=== PATIENT | female | born 1985 | race Caucasian/White ===

== ENCOUNTER 2018-09-21 11:00 | Outpatient (CLI) | payer OTHER ==
[2018-09-21 19:00] LABS: BASOPHILS % (AUTO) 0.3 %; EOSINOPHILS # (AUTO) 0.1 10^3/uL (0.0-0.7); HGB - HEMOGLOBIN 14.8 g/dL (12.0-16.0); LYMPHOCYTES # (AUTO) 1.7 10^3/uL (1.5-3.5); LYMPHOCYTES % (AUTO) 23.3 %; MEAN CORPUSCULAR HEMOGLOBIN 32.2 pg (27.0-31.0); MEAN CORPUSCULAR HGB CONC 33.2 g/dL (32.0-36.0); MEAN CORPUSCULAR VOLUME 96.9 fL (81.0-99.0); MEAN PLATELET VOLUME 9.4 fL (7.9-10.8); MONOCYTES # (AUTO) 0.4 10^3/uL (0.0-1.0); MONOCYTES % (AUTO) 5.7 %; NEUTROPHILS # (AUTO) 5.1 10^3/uL (1.5-6.6); NEUTROPHILS % (AUTO) 69.7 %; PLT - PLATELET COUNT 268 10^3/uL (130-450); RED BLOOD COUNT 4.59 10^6/uL (4.20-5.40); RED CELL DISTRIBUTION WIDTH 12.6 % (12.0-15.0); WHITE BLOOD COUNT 7.3 x10^3/uL (4.8-10.8)
[2018-09-21 19:21] LABS: ALBUMIN 4.4 g/dL (3.2-5.5); ALBUMIN/GLOBULIN RATIO 1.2 (1.0-2.2); ALKALINE PHOSPHATASE 53 IU/L (42-121); ALT ALANINE AMINOTRANSFERASE 12 IU/L (10-60); AST ASPARTATE AMINOTRANSFERASE 19 IU/L (10-42); BILIRUBIN,TOTAL 0.8 mg/dL (0.2-1.0); BUN - BLOOD UREA NITROGEN 12 mg/dL (6-20); CALCIUM 9.3 mg/dL (8.5-10.3); CARBON DIOXIDE - CO2 25 mmol/L (21-32); CHLORIDE 102 mmol/L (101-111); CHOL/HDL RATIO 2.8 (<4.4); CHOLESTEROL 214 mg/dL; CREATININE 0.7 mg/dL (0.4-1.0); GFR - MDRD 95 (>89); GLUCOSE 96 mg/dL (70-100); HDL CHOLESTEROL 76 mg/dL; LDL CHOLESTEROL,CALCULATED 120 mg/dL; LDL/HDL RATIO 1.6 (<4.4); SODIUM 137 mmol/L (135-145); TOTAL PROTEIN 8.1 g/dL (6.7-8.2); VLDL CHOLESTEROL 18 mg/dL
[2018-09-21 19:37] LABS: HB2 TOTAL 15.4 g/dL; HEMOGLOBIN A1C 0.54 g/dL; HEMOGLOBIN A1C % 5.4 % (4.6-6.2)
== END 2018-09-21 11:01 | disposition home or self-care (01) ==
LOC: LAB.WCP 11:00
PROVIDERS: ATTEND Family Medicine
DX: Z00.00 Encounter for general adult medical examination without abnormal findings (principal)
CPT/HCPCS: 36415; 80053; 80061; 83036; 83721; 84443; 85025

== ENCOUNTER 2020-10-24 10:50 | Outpatient (CLI) | payer OTHER ==
--- NOTE | 2020-10-24 13:01 | XRAY Report ---
PROCEDURE: Sinus Complete INDICATIONS: CHRONIC SINUSITIS TECHNIQUE: 3 views of the sinuses were acquired. COMPARISON: None FINDINGS: Sinuses: The visualized sinuses demonstrate no air-fluid levels or mucosal thickening. The visualiz ed mastoids also appear clear. Bones: No suspicious bony lesions. Nasal septum is midline. IMPRESSION: No sign of air-fluid level or mucosal thickening involving the paranasal sinuses. Reviewed by: Renato Velazco MD on 10/24/2020 12:59 PM PDT Approved by: Renato Velazco MD on 10/24/2020 12:59 PM PDT Station ID: [id number]
== END 2020-10-24 10:51 | disposition home or self-care (01) ==
LOC: DI.N 10:50
PROVIDERS: ATTEND Family Medicine
DX: J32.9 Chronic sinusitis, unspecified (principal)

== ENCOUNTER 2020-11-05 11:07 | Emergency (ER) | payer BC, OTHER ==
[2020-11-05 11:20] VITALS: BP 126/83
[2020-11-05] MEDS ORDERED: METOCLOPRAMIDE 10 MG/2 ML VIAL IVP STA (11:40)
--- NOTE | 2020-11-05 11:41 | ED Physician Documentation ---
History of Present Illness - Stated complaint Stated Complaint: N/V/D - Chief complaint Chief Complaint: Abd Pain - History obtained from History obtained from: Patient - Additonal information Additional information: 35-year-old woman with longstanding headaches of unclear etiology. She is had them for years. About 5 years ago had an MRI per her that was normal. Over the last couple weeks has had more headaches, her physician thought they might be sinus in origin and has been taking Flonase and Afrin without relief. She does not feel congested per se. No fevers. Over the last couple of weeks to she has had vomiting and diarrhea. She has vomited every day especially in the mornings. She does not think there is a possibility of as she had a normal menses recently. There is no blood from either end. No significant abdominal pain. Review of Systems Ten Systems: 10 systems reviewed and negative Constitutional: reports: Fatigue. denies: Fever, Chills, Myalgias Nose: denies: Rhinorrhea / runny nose, Congestion Cardiac: denies: Chest pain / pressure, Palpitations Respiratory: denies: Dyspnea, Cough PD PAST MEDICAL HISTORY - Past Medical History Past Medical History: No : None - Past Surgical History Past Surgical History: No - Present Medications Home Medications: Ambulatory Orders Medication Instructions Recorded Confirmed Loperamide [Imodium] 2 mg PO QID PRN #10 cap 11/05/20 Ondansetron Odt [Zofran] 4 mg TL Q6H PRN #10 tablet 11/05/20 - Allergies Allergies/Adverse Reactions: Allergies Allergy/AdvReac Type Severity Reaction Status Date / Time No Known Drug Allergies Allergy Verified 11/05/20 11:16 - Social History Does the pt smoke?: No Smoking Status: Never smoker Does the pt drink ETOH?: No Does the pt have substance abuse?: No - Immunizations Immunizations are current?: Yes - POLST Patient has POLST: No PD ED PE NORMAL - Vitals Vital signs reviewed: Yes - General General: Alert and oriented X 3, No acute distress - HEENT HEENT: PERRL, EOMI - Neck Neck: Supple, no meningeal sign, No bony TTP - Cardiac Cardiac: RRR, No murmur - Respiratory Respiratory: No respiratory distress, Clear bilaterally - Abdomen Abdomen: Normal bowel sounds, Soft, Non tender - Back Back: No CVA TTP, No spinal TTP - Derm Derm: Normal color, Warm and dry - Extremities Extremities: No edema, No calf tenderness / cord - Neuro Neuro: Alert and oriented X 3, orchard sprayer 2-12 intact, No motor deficit, No sensory deficit, Normal speech Results - Vitals Vitals: Vital Signs - 24 hr 11/05/20 11:16 Temperature 36.6 C Heart Rate 100 Respiratory 16 Rate Blood Pressure 126/83 H O2 Saturation 97 Oxygen O2 Source Room air - Labs Labs: Laboratory Tests 11/05/20 11/05/20 11/05/20 11:45 11:45 11:45 WBC 7.1 RBC 4.52 Hgb 15.0 Hct 43.0 MCV 95.1 MCH 33.2 H MCHC 34.9 RDW 11.5 L Plt Count 308 MPV 10.4 Neut # (Auto) 5.4 Lymph # (Auto) 1.2 L [place] # (Auto) 0.4 Eos # (Auto) 0.0 Baso # (Auto) 0.0 Absolute Nucleated RBC 0.00 Nucleated RBC % 0.0 Sodium 138 Potassium 3.7 Chloride 102 Carbon Dioxide 26 Anion Gap 10.0 BUN 10 Creatinine 0.7 Estimated GFR (MDRD) 94 Glucose 124 H Calcium 9.3 Total Bilirubin 0.8 AST 16 ALT 12 Alkaline Phosphatase 57 Total Protein 8.2 Albumin 4.8 Globulin 3.4 Albumin/Globulin Ratio 1.4 Lipase 29 Urine Color YELLOW Urine Clarity CLEAR Urine pH 6.0 Ur Specific [place] 1.010 Urine Protein NEGATIVE Urine Glucose (UA) NEGATIVE Urine Ketones NEGATIVE Urine Occult Blood TRACE-INTA Urine Nitrite NEGATIVE Urine Bilirubin NEGATIVE Urine Urobilinogen 0.2 (NORMAL) Ur Leukocyte Esterase NEGATIVE Ur Microscopic Review NOT INDICATED Urine Culture Comments NOT INDICATED Urine HCG, Qual NEGATIVE PD MEDICAL DECISION MAKING - ED course ED course: 35-year-old woman with worsening of chronic headaches associated with vomiting. Exam is benign. No abdominal pain. She does have diarrhea with it as well but the time course seems too long for simple gastroenteritis. 35-year-old woman with subacute to chronic headaches presents with worsening recent headaches and vomiting. She also has diarrhea. After the administration of Reglan her nausea was significantly better but she did have mild akathisia which she declined further treatment for. The Reglan did did not change her headache per se. Given the concern for tumor given the ongoing chronic headaches and vomiting a CT scan of the head was done and interpreted contemporaneously by me and was normal. The presentation otherwise is not concerning for subarachnoid hemorrhage or meningitis. Diagnosis: 1. Vomiting 2. Headache 3. Diarrhea Departure - Departure Disposition: 01 Home, Self Care Condition: Good Record reviewed to determine appropriate education?: Yes Instructions: ED Nausea Vomiting Prescriptions: Loperamide [Imodium] 2 mg PO QID PRN #10 cap PRN Reason: Diarrhea Ondansetron Odt [Zofran] 4 mg TL Q6H PRN #10 tablet PRN Reason: Nausea / Vomiting Comments: CT scan and labs are normal today. Follow-up with your primary care physician, next available appointment. Return for new or worsening symptoms.
[2020-11-05 12:02] LABS: BASOPHILS % (AUTO) 0.4 %; LYMPHOCYTES # (AUTO) 1.2 10^3/uL (1.5-3.5); LYMPHOCYTES % (AUTO) 17.3 %; MEAN CORPUSCULAR HEMOGLOBIN 33.2 pg (27.0-31.0); MEAN CORPUSCULAR HGB CONC 34.9 g/dL (32.0-36.0); MEAN CORPUSCULAR VOLUME 95.1 fL (81.0-99.0); MEAN PLATELET VOLUME 10.4 fL (7.9-10.8); MONOCYTES # (AUTO) 0.4 10^3/uL (0.0-1.0); NEUTROPHILS # (AUTO) 5.4 10^3/uL (1.5-6.6); NEUTROPHILS % (AUTO) 76.9 %; PLT - PLATELET COUNT 308 10^3/uL (130-450); RED BLOOD COUNT 4.52 10^6/uL (4.20-5.40); RED CELL DISTRIBUTION WIDTH 11.5 % (12.0-15.0); WHITE BLOOD COUNT 7.1 x10^3/uL (4.8-10.8)
[2020-11-05 12:08] LABS: BILIRUBIN,URINE NEGATIVE (NEGATIVE); GLUCOSE, URINE (UA) NEGATIVE (NEGATIVE); KETONES,URINE (UA) NEGATIVE (NEGATIVE); LEUKOCYTE ESTERASE, URINE NEGATIVE (NEGATIVE); NITRITE,URINE NEGATIVE (NEGATIVE); OCCULT BLOOD,URINE TRACE-INTA (NEGATIVE); PROTEIN,URINE NEGATIVE (NEGATIVE); UROBILINOGEN,URINE 0.2 (NORMAL) E.U./dL (NORMAL)
[2020-11-05 12:10] LABS: ALBUMIN 4.8 g/dL (3.2-5.5); ALBUMIN/GLOBULIN RATIO 1.4 (1.0-2.2); BILIRUBIN,TOTAL 0.8 mg/dL (0.2-1.0); CALCIUM 9.3 mg/dL (8.5-10.3); CREATININE 0.7 mg/dL (0.4-1.0); POTASSIUM 3.7 mmol/L (3.5-5.0); TOTAL PROTEIN 8.2 g/dL (6.7-8.2)
[2020-11-05 12:13] LABS: CLARITY,URINE CLEAR (CLEAR); HCG UR QUAL NEGATIVE
--- NOTE | 2020-11-05 12:14 | CT Report ---
PROCEDURE: HEAD WO INDICATIONS: headache, vomiting TECHNIQUE: Noncontrast 4.5 mm thick angled axial sections acquired from the foramen magnum to the vertex. For r adiation dose reduction, the following was used: automated exposure control, adjustment of mA and/or kV according to patient size. COMPARISON: None. FINDINGS: Image quality: Excellent. CSF spaces: Basal cisterns are patent. No extra-axial fluid collections. Ventricles are normal in size and shape. Brain: No midline shift. No intracranial masses or hemorrhage. Paez-white matter interface is norm al. Skull and face: Calvarium and visualized facial bones are intact, without suspicious lesions. Sinuses: Visualized sinuses and mastoids are clear. IMPRESSION: 1. No acute intracranial process. Reviewed by: Tamy Obrien MD on 11/05/2020 12:13 PM PDT Approved by: Tamy Obrien MD on 11/05/2020 12:13 PM PDT Station ID: [id number]
== END 2020-11-05 12:43 | disposition home or self-care (01) ==
LOC: ED 11:07
DX: R11.10 Vomiting, unspecified (principal); R19.7 Diarrhea, unspecified; R51.9 Headache, unspecified
CPT/HCPCS: 36415; 70450; 80053; 81003; 81025; 83690; 85025; 96374; 99284; J2765; 81001; 87086

== ENCOUNTER 2020-11-13 08:00 | Outpatient (CLI) | payer BC | END 2020-11-13 08:01 | disposition home or self-care (01) | LOC: LAB.N 08:00 | PROVIDERS: ATTEND Family Medicine | DX: R10.9 Unspecified abdominal pain (principal); R10.13 Epigastric pain | CPT/HCPCS: 87086; 87338 ==

== ENCOUNTER 2020-11-13 10:21 | Outpatient (CLI) | payer BC ==
[2020-11-13 11:20] LABS: H. PYLORIS ANTIGEN STL NEGATIVE (Negative)
== END 2020-11-13 10:22 | disposition home or self-care (01) ==
LOC: LAB.R 10:21
PROVIDERS: ATTEND Family Medicine
DX: R10.13 Epigastric pain (principal)
CPT/HCPCS: 87338

== ENCOUNTER 2020-12-06 08:57 | Outpatient (CLI) | payer BC ==
[2020-12-06 12:20] LABS: BASOPHILS % (AUTO) 0.6 %; EOSINOPHILS % (AUTO) 0.4 %; HCT - HEMATOCRIT 44.6 % (37.0-47.0); HGB - HEMOGLOBIN 15.3 g/dL (12.0-16.0); LYMPHOCYTES # (AUTO) 1.4 10^3/uL (1.5-3.5); LYMPHOCYTES % (AUTO) 30.9 %; MEAN CORPUSCULAR HEMOGLOBIN 33.2 pg (27.0-31.0); MEAN CORPUSCULAR HGB CONC 34.3 g/dL (32.0-36.0); MEAN CORPUSCULAR VOLUME 96.7 fL (81.0-99.0); MEAN PLATELET VOLUME 10.8 fL (7.9-10.8); MONOCYTES # (AUTO) 0.5 10^3/uL (0.0-1.0); MONOCYTES % (AUTO) 9.7 %; NEUTROPHILS # (AUTO) 2.7 10^3/uL (1.5-6.6); NEUTROPHILS % (AUTO) 58.2 %; PLT - PLATELET COUNT 301 10^3/uL (130-450); RED BLOOD COUNT 4.61 10^6/uL (4.20-5.40); RED CELL DISTRIBUTION WIDTH 11.7 % (12.0-15.0); WHITE BLOOD COUNT 4.7 x10^3/uL (4.8-10.8)
[2020-12-06 13:33] LABS: ALBUMIN 4.7 g/dL (3.2-5.5); ALBUMIN/GLOBULIN RATIO 1.5 (1.0-2.2); BILIRUBIN,TOTAL 0.9 mg/dL (0.2-1.0); CALCIUM 9.9 mg/dL (8.5-10.3); CREATININE 0.8 mg/dL (0.4-1.0); POTASSIUM 4.2 mmol/L (3.5-5.0); TOTAL PROTEIN 7.9 g/dL (6.7-8.2)
== END 2020-12-06 23:59 | disposition home or self-care (01) ==
LOC: LAB.WCP 08:57
PROVIDERS: ATTEND Family Medicine
DX: R10.9 Unspecified abdominal pain (principal); R10.13 Epigastric pain; R11.0 Nausea
CPT/HCPCS: 36415; 80053; 82150; 83690; 85025

== ENCOUNTER 2020-12-22 08:05 | Outpatient (CLI) | payer BC ==
--- NOTE | 2020-12-22 10:36 | Ultrasound Report ---
PROCEDURE: Abdomen Complete INDICATIONS: ABD CRAMPS, EPIGASTRIC DISCOMFORT TECHNIQUE: Real-time scanning was performed of the abdominal and retroperitoneal organs, with image documentatio n. COMPARISON: None. FINDINGS: Liver: Increased hepatic parenchymal echogenicity indicative of at least mild hepatic steatosis. Gallbladder: There are a few small gallstones. No findings of cholecystitis. Normally distended gallb ladder. Biliary ducts: Intrahepatic bile ducts are non-dilated. Extrahepatic bile duct caliber measures 3 m m. Normal is 6-7 mm or less in diameter, or 10 mm or less post-cholecystectomy. Pancreas: Visualized portions of the pancreas are sonographically normal. Spleen: Spleen is normal in size and homogeneous in echotexture. Kidneys: Normal size and appearance of both kidneys. No shadowing calculus or hydronephrosis. Aorta: Visualized aorta is normal in caliber at less than 3 cm. Iliacs: Proximal common iliac arteries are normal in caliber at less than 2.5 cm. IVC: Intrahepatic inferior vena cava is patent. Miscellaneous: No free abdominal fluid. IMPRESSION: Hepatic steatosis. Cholelithiasis without findings of cholecystitis. Reviewed by: Leonardo Epps MD on 12/22/2020 10:34 AM PDT Approved by: Leonardo Epps MD on 12/22/2020 10:34 AM PDT Station ID: [id number]
== END 2020-12-22 08:06 | disposition home or self-care (01) ==
LOC: DI 08:05
PROVIDERS: ATTEND Family Medicine
DX: R10.9 Unspecified abdominal pain (principal); R10.13 Epigastric pain; R11.0 Nausea; J32.9 Chronic sinusitis, unspecified; K76.0 Fatty (change of) liver, not elsewhere classified; K80.20 Calculus of gallbladder without cholecystitis without obstruction

== ENCOUNTER 2020-12-31 13:33 | Outpatient (CLI) | payer BC | END 2020-12-31 13:34 | disposition home or self-care (01) | LOC: COV 13:33 | PROVIDERS: ATTEND Surgery | DX: Z01.812 Encounter for preprocedural laboratory examination (principal); K81.1 Chronic cholecystitis; Z20.822 Contact with and (suspected) exposure to COVID-19 ==

== ENCOUNTER 2021-01-02 06:04 | Day surgery (SDC) | payer BC ==
[2021-01-02] MEDS ORDERED: CEFAZOLIN SODIUM IN 0.9 % NACL 2 GM/100 ML BAG IV ONE (06:29)
[2021-01-02 06:48] LABS: HCG UR QUAL NEGATIVE
[2021-01-02] MEDS ORDERED: LACTATED RINGERS 1,000 ML IV ONE ×3 (06:58→09:39)
[2021-01-02] MEDS ORDERED: BUPIVACAINE 0.25% PF 30 ML VIAL ONE (07:07)
[2021-01-02] MEDS ORDERED: MIDAZOLAM 2 MG/2 ML VIAL ONE (07:09)
[2021-01-02] MEDS ORDERED: fentaNYL 100 MCG/2 ML VIAL ONE (07:09)
--- NOTE | 2021-01-02 07:10 | ANESTHESIA ---
Pre-Anesthesia VS, & Labs - Diagnosis cholecystitis - Procedure laparoscopic cholecystectomy Height: 5 ft 5 in Weight (kg): 61.1 kg Body Mass Index: 22.4 BMI Classification: Healthy weight - NPO >8 hours - Is Patient ?: No Home Medications and Allergies Home Medications: Ambulatory Orders Omeprazole Magnesium 20 mg PO DAILY 12/28/20 Sucralfate [Carafate] 1 tablet PO ACHS 12/28/20 Omeprazole Magnesium 20 mg PO DAILY 12/28/20 Sucralfate [Carafate] 1 tablet PO ACHS 12/28/20 Allergies/Adverse Reactions: Allergies Allergy/AdvReac Type Severity Reaction Status Date / Time No Known Drug Allergies Allergy Verified 11/05/20 11:16 Anes History & Medical History - Anesthetic History Anesthesia Complications: reports: No previous complications - Medical History Cardiovascular: reports: None Pulmonary: reports: Asthma Gastrointestinal: reports: None Urinary: reports: None Musculoskeletal: reports: None Endocrine/Autoimmune: reports: None Skin: reports: None Smoking Status: Never smoker History of Cancer?: No Exam General: Alert Dental: WNL Mallampati classification: II Respiratory: Lungs clear Cardiovascular: Regular rate Plan Anesthesia Type: General Consent for Procedure(s) Verified and Reviewed: Yes Code Status: Attempt Resuscitation ASA classification: 1-Healthy patient Is this case an emergency?: No
[2021-01-02] MEDS ORDERED: LIDOCAINE-MPF 2% 5 ML VIAL ONE (07:12)
[2021-01-02] MEDS ORDERED: PROPOFOL 200 MG/20 ML VIAL IVP ONE (07:12)
[2021-01-02] MEDS ORDERED: ROCURONIUM 50 MG/5 ML VIAL ONE (07:13)
[2021-01-02] MEDS ORDERED: MORPHINE 2 MG/ML CARPUJECT IVP PRN (07:23)
[2021-01-02] MEDS ORDERED: ePHEDrine 50 MG/ML VIAL IVP PRN (07:23)
[2021-01-02] MEDS ORDERED: METOCLOPRAMIDE 10 MG/2 ML VIAL IVP PRN (07:23)
[2021-01-02] MEDS ORDERED: fentaNYL 100 MCG/2 ML VIAL IVP PRN (07:23)
[2021-01-02] MEDS ORDERED: ATROPINE ABBOJECT 1 MG/10 ML SYRINGE IVP PRN (07:23)
[2021-01-02] MEDS ORDERED: HYDROmorphone 0.5 MG/0.5 ML SYRINGE IVP PRN (07:23)
[2021-01-02] MEDS ORDERED: NALOXONE 0.4 MG/ML VIAL IVP PRN (07:23)
[2021-01-02] MEDS ORDERED: ONDANSETRON 4 MG/2 ML VIAL IVP PRN ×2 (07:23→08:51)
[2021-01-02] MEDS ORDERED: SCOPOLAMINE PATCH TOP ONE (07:30)
[2021-01-02] MEDS ORDERED: ACETAMINOPHEN 1,000 MG/100 ML 100 ML IV ONE (07:48)
[2021-01-02] MEDS ORDERED: LACTATED RINGERS 1,000 ML IV SCH (08:00)
[2021-01-02] MEDS ORDERED: BUPIVACAINE 0.25% PF 30 ML VIAL SUBQ ONE ×2 (08:07)
[2021-01-02] MEDS ORDERED: SUGAMMADEX 200 MG/2 ML VIAL IVP ONE (08:29)
[2021-01-02] MEDS ORDERED: HYDROcod/ACETAM 5/325 MG TABLET PO PRN (08:51)
--- NOTE | 2021-01-02 08:57 | OPERATIVE REPORT ---
Operative Report - General Procedure Date: 01/02/21 Planned Procedure: laparoscopic cholecystectomy Pre-Op Diagnosis: chronic cholecystitis Procedure Performed: laparoscopic cholecystectomy Post Op Diagnosis: chronic cholecystitis - Procedure Note Primary Surgeon: kelin asher md Anesthesia Technique: General ET tube, Local Pathology: gallbladder Estimated Blood Loss (mL): 5 Drain/Tube Type: Other (none) Indications: epigastric pain, gallstones, and chronic cholecystitis Findings: normal cbd and liver Complications: none - Other Other Information/Narrative: The patient was properly identified, brought to the operating room and placed in supine position. Sequential compression devices were placed. General endotracheal anesthesia was induced. The patient was prepped and draped in a sterile fashion and given preoperative antibiotics. Local anesthetic was given to incision areas. An incision was made in the periumbilical area. Dissection proceeded down to fascia. The fascia was incised lifted upwards and abdomen entered with a Veress needle. CO2 was insufflated to a pressure of 15. An 11 mm trocar followed by a 30 degree scope was placed. There was no evidence of injury from Veress needle or trocar placement. Under direct vision 2 5 mm trochars were placed in the right upper quadrant and an 11 mm trocar was placed in the epigastrium. Body of the gallbladder was retracted anterior. Lateral attachments were partially taken down further mobilizing the gallbladder more anterior and away from the duodenum. The infundibulum of the gallbladder was then retracted right lateral and caudad. With minimal use of cautery a large bare cystic plate area or window was carefully created. The cystic duct was inspected from right lateral and left lateral positions. [] The cystic duct was then clipped at the gallbladder and 3 times slightly proximal and sharply divided. The cystic artery was clipped at the gallbladder and then 2 times slightly proximal and sharply divided. The gallbladder was mobilized off from the bed of the liver with hook cautery. The gallbladder was placed in Endo Catch bag and brought out through the epigastric trocar site. Hemostasis was assured. Trochars were removed under direct vision. Fascia at the larger trocar sites was closed with apmeuv-as-bsydd are running 0 Vicryl suture. Subcutaneous tissue was irrigated and skin closed with interrupted 4-0 Monocryl. Dressings were applied. Patient tolerated the procedure well was awakened and brought to recovery in good condition.
[2021-01-02] MEDS ORDERED: HYDROcod/ACETAM 5/325 MG TABLET ONE (09:30)
[2021-01-02 12:28] VITALS: BP 120/75
--- NOTE | 2021-01-02 14:09 | ANESTHESIA POST OP EVALUATION ---
Anesthesia Post Eval - Post Anesthesia Eval Vitals: Last Vital Signs Temp 36.6 C 01/02/21 12:00 Pulse 68 01/02/21 12:00 Resp 16 01/02/21 12:00 BP 120/75 01/02/21 12:00 Pulse Ox 100 01/02/21 12:00 CV Function Including HR & BP: Stable Pain Control: Satisfactory Nausea & Vomiting: Negative Mental Status: Baseline Respiratory Status: Airway Patent Hydration Status: Satisfactory Anesthesia Complications: None
== END 2021-01-02 06:05 | disposition home or self-care (01) ==
LOC: SDS 06:04
PROVIDERS: ATTEND Surgery
PROC: 0FT44ZZ Resection of Gallbladder, Percutaneous Endoscopic Approach (ICD-10-PCS; principal; 2021-01-02 07:30)
DX: K81.1 Chronic cholecystitis (principal)
CPT/HCPCS: 47562; 81025; A9270; J0131; J0690; J3490; J7120

== ENCOUNTER 2021-03-19 09:33 | Outpatient (CLI) | payer BC | END 2021-03-19 09:34 | disposition home or self-care (01) | LOC: LAB.N 09:33 | PROVIDERS: ATTEND Surgery | DX: Z01.812 Encounter for preprocedural laboratory examination (principal); R10.13 Epigastric pain; Z20.822 Contact with and (suspected) exposure to COVID-19 ==

== ENCOUNTER 2021-03-19 16:04 | Outpatient (CLI) | payer BC | END 2021-03-19 16:05 | disposition home or self-care (01) | LOC: LAB.N 16:04 | PROVIDERS: ATTEND Surgery | DX: Z01.812 Encounter for preprocedural laboratory examination (principal); R10.13 Epigastric pain ==

== ENCOUNTER 2021-03-20 08:53 | Day surgery (SDC) | payer BC ==
[2021-03-20] MEDS ORDERED: PROPOFOL 500 MG/50 ML 500 MG/50 ML VIAL ONE (09:07)
[2021-03-20] MEDS ORDERED: LIDOCAINE-PF 2% 10 ML AMP SUBQ ONE (09:08)
[2021-03-20 09:18] LABS: HCG UR QUAL NEGATIVE
[2021-03-20] MEDS ORDERED: LACTATED RINGERS 1,000 ML IV ONE ×2 (09:25→09:57)
--- NOTE | 2021-03-20 09:31 | ANESTHESIA ---
Pre-Anesthesia VS, & Labs - Diagnosis heartburn - Procedure EGD Vital Signs: Temp Pulse Resp BP Pulse Ox 36.4 C L 90 16 123/71 98 03/20/21 09:00 03/20/21 09:00 03/20/21 09:00 03/20/21 09:00 03/20/21 09:00 Height: 5 ft 5 in Weight (kg): 59.2 kg Body Mass Index: 21.7 BMI Classification: Healthy weight - NPO >8 hours - Is Patient ?: No Home Medications and Allergies Omeprazole Magnesium 20 mg PO DAILY 12/28/20 Sucralfate [Carafate] 1 tablet PO ACHS 12/28/20 Allergies/Adverse Reactions: Allergies Allergy/AdvReac Type Severity Reaction Status Date / Time No Known Drug Allergies Allergy Verified 11/05/20 11:16 Anes History & Medical History - Anesthetic History Anesthesia Complications: reports: No previous complications Family history of Anesthesia Complications: Denies Family history of Malignant Hyperthermia: Denies - Medical History Cardiovascular: reports: None Pulmonary: reports: Asthma Gastrointestinal: reports: GERD, Chronic diarrhea, Other Urinary: reports: None Musculoskeletal: reports: None Endocrine/Autoimmune: reports: None Skin: reports: None Smoking Status: Never smoker - Surgical History General: reports: Cholecystectomy Exam General: Alert, Oriented x3, Cooperative Dental: WNL Mouth Opening: Greater than 4 Fingerbreadths Neck Mobility: Normal Mallampati classification: I Thyromental Distance: 4-6 cm Respiratory: Lungs clear Cardiovascular: Regular rate Plan Anesthesia Type: Total IV Consent for Procedure(s) Verified and Reviewed: Yes Code Status: Attempt Resuscitation ASA classification: 2-Mild systemic disease Is this case an emergency?: No
[2021-03-20] MEDS ORDERED: MIDAZOLAM 2 MG/2 ML VIAL ONE (09:37)
[2021-03-20 10:28] VITALS: BP 118/70
--- NOTE | 2021-03-20 10:58 | ANESTHESIA POST OP EVALUATION ---
Anesthesia Post Eval - Post Anesthesia Eval Vitals: Last Vital Signs Temp 36.5 C 03/20/21 10:28 Pulse 66 03/20/21 10:28 Resp 19 03/20/21 10:28 BP 118/70 03/20/21 10:28 Pulse Ox 98 03/20/21 10:28 CV Function Including HR & BP: Stable Pain Control: Satisfactory Nausea & Vomiting: Negative Mental Status: Baseline Respiratory Status: Airway Patent Hydration Status: Satisfactory Anesthesia Complications: None
== END 2021-03-20 08:54 | disposition home or self-care (01) ==
LOC: SDS 08:53
PROVIDERS: ATTEND Surgery
PROC: 0DB78ZX Excision of Stomach, Pylorus, Via Natural or Artificial Opening Endoscopic, Diagnostic (ICD-10-PCS; 2021-03-20)
PROC: 0DB38ZX Excision of Lower Esophagus, Via Natural or Artificial Opening Endoscopic, Diagnostic (ICD-10-PCS; 2021-03-20)
PROC: 0DB98ZX Excision of Duodenum, Via Natural or Artificial Opening Endoscopic, Diagnostic (ICD-10-PCS; principal; 2021-03-20 09:45)
DX: K21.9 Gastro-esophageal reflux disease without esophagitis (principal); R10.13 Epigastric pain
CPT/HCPCS: 43239; 81025; J7120

== ENCOUNTER 2021-04-09 12:10 | Outpatient (CLI) | payer BC ==
[2021-04-09 21:31] LABS: BASOPHILS % (AUTO) 0.5 %; EOSINOPHILS % (AUTO) 0.2 %; HCT - HEMATOCRIT 42.9 % (37.0-47.0); HGB - HEMOGLOBIN 14.8 g/dL (12.0-16.0); LYMPHOCYTES % (AUTO) 16.5 %; MEAN CORPUSCULAR HEMOGLOBIN 32.9 pg (27.0-31.0); MEAN CORPUSCULAR HGB CONC 34.5 g/dL (32.0-36.0); MEAN CORPUSCULAR VOLUME 95.3 fL (81.0-99.0); MEAN PLATELET VOLUME 10.4 fL (7.9-10.8); MONOCYTES # (AUTO) 0.4 10^3/uL (0.0-1.0); NEUTROPHILS # (AUTO) 4.7 10^3/uL (1.5-6.6); NEUTROPHILS % (AUTO) 76.5 %; PLT - PLATELET COUNT 334 10^3/uL (130-450); RED CELL DISTRIBUTION WIDTH 11.2 % (12.0-15.0); WHITE BLOOD COUNT 6.1 x10^3/uL (4.8-10.8)
[2021-04-09 22:21] LABS: ALBUMIN 4.7 g/dL (3.2-5.5); ALBUMIN/GLOBULIN RATIO 1.3 (1.0-2.2); BILIRUBIN,TOTAL 0.7 mg/dL (0.2-1.0); CALCIUM 9.3 mg/dL (8.5-10.3); CREATININE 0.7 mg/dL (0.4-1.0); POTASSIUM 4.2 mmol/L (3.5-5.0); TOTAL PROTEIN 8.3 g/dL (6.7-8.2)
[2021-04-09 22:28] LABS: ESTIMATED AVERAGE GLUCOSE 105 mg/dL (70-100); HEMOGLOBIN A1c% 5.3 % (4.27-6.07); THYROID STIMULATING HORMONE 0.88 uIU/mL (0.34-5.60)
[2021-04-09 22:30] LABS: FREE T3 3.62 pg/mL (2.5-3.9)
[2021-04-09 22:31] LABS: FREE T4 (FREE THYROXINE) 0.99 ng/dL (0.58-1.64)
== END 2021-04-09 23:59 | disposition home or self-care (01) ==
LOC: LAB.WCP 12:10
PROVIDERS: ATTEND Family Medicine
DX: K21.9 Gastro-esophageal reflux disease without esophagitis (principal); K81.1 Chronic cholecystitis; R73.9 Hyperglycemia, unspecified; R11.2 Nausea with vomiting, unspecified; R10.9 Unspecified abdominal pain; R10.13 Epigastric pain; R63.4 Abnormal weight loss
CPT/HCPCS: 36415; 80053; 83036; 84439; 84443; 84481; 85025

== ENCOUNTER 2021-06-01 07:46 | Outpatient (CLI) | payer BC, OTHER ==
[2021-06-01] MEDS ORDERED: IOPAMIDOL-300 50 ML VIAL ONE (08:14)
[2021-06-01] MEDS ORDERED: iohexoL-300 100 ML VIAL ONE (08:14)
--- NOTE | 2021-06-01 10:01 | CT Report ---
PROCEDURE: CT abdomen with contrast INDICATIONS: 35-year-old female with epigastric pain status post cholecystectomy 01/22/2021 CONTRAST: IV CONTRAST: Isovue 300 ml: 100 PO CONTRAST: Isovue 300 ml50 TECHNIQUE: After the administration of oral and intravenous contrast, 5 mm thick sections acquired from the diap hragms to the iliac crests. 5 mm thick coronal and sagittal reformats were acquired. For radiation dose reduction, the following was used: automated exposure control, adjustment of mA and/or kV accor ding to patient size. COMPARISON: None FINDINGS: Image quality: Excellent. Lung bases: Lung bases are clear. Heart size is normal. Solid organs: Liver and spleen are normal in size and enhancement. Gallbladder surgically absent. Biliary system is non dilated. Pancreas enhances normally. No adrenal nodules. Kidneys are normal in size, without hydronephrosis. Peritoneum and bowel: There is mild wall thickening and pericolonic edema involving the mid transvers e colon, partially imaged Nodes and vessels: No retroperitoneal or mesenteric adenopathy by size criteria. Aorta and inferior vena cava are normal in size. Bones: No suspicious bony lesions. No vertebral body compression fractures. Miscellaneous: No ventral hernias. IMPRESSION: 1. Mild colonic wall thickening and pericolonic edema involving the proximal transverse colon may ref lect mild underlying colitis. No obstruction. 2. Cholecystectomy without evidence of complication Reviewed by: Mane Gordon MD on 06/01/2021 8:59 AM [place] Approved by: Mane Gordon MD on 06/01/2021 8:59 AM [facility] Station ID: [id number]
[2021-06-01] MEDS: iohexoL-300 100 ML VIAL IVP ONE (16:43)
[2021-06-01] MEDS: IOPAMIDOL-300 50 ML VIAL PO ONE (16:43)
== END 2021-06-01 07:47 | disposition home or self-care (01) ==
LOC: DI 07:46
PROVIDERS: ATTEND Family Medicine
DX: K31.84 Gastroparesis (principal); K21.9 Gastro-esophageal reflux disease without esophagitis; R10.9 Unspecified abdominal pain; K63.89 Other specified diseases of intestine; Z90.49 Acquired absence of other specified parts of digestive tract
CPT/HCPCS: 74160; Q9967

== ENCOUNTER 2021-06-19 12:46 | Outpatient (CLI) | payer OTHER | END 2021-06-19 12:47 | disposition home or self-care (01) | LOC: LAB 12:46 | PROVIDERS: ATTEND Specialist | DX: K52.9 Noninfective gastroenteritis and colitis, unspecified (principal) | CPT/HCPCS: 81599; 87505 ==